=== PATIENT | female | born 1955 | race Caucasian/White ===

== ENCOUNTER 2017-12-04 20:02 | Emergency (ER) | payer OTHER, SELFPAY ==
[2017-12-04 20:09] VITALS: BP 116/67; PULSE 92; RESP 18; TEMP 36.8; O2SAT 98; BMI 22.4
[2017-12-04 20:50] LABS: Absolute Lymphocyte Count 1.79 X10^3/ul (0.83-4.51); Absolute Neutrophil Count 4.2 X10^3/uL (2.0-7.7); Basophil# 0.02 X10^3/uL; Basophil% 0.3 % (0-1); Eosinophil# 0.04 X10^3/uL; Eosinophils% 0.6 % (0-5); Hematocrit 43.6 % (37-47); Hemoglobin 14.6 g/dl (12.0-15.0); Lymphocyte # 1.79 X10^3/ul (4.0); Lymphocyte % 27.9 % (19-41); Mean Corp Hgb Conc 33.5 g/gl (32-36); Mean Corpuscular Volume 95.6 fL (81-99); Mean Platelet Vol. 10.1 fl (6.2-12.0); Monocyte# 0.33 X10^3/uL; Monocyte% 5.1 % (0-10); Neutrophil # 4.24 X10^3/uL (2.7-7.7); Neutrophil % 66.1 % (47-70); Platelet Count 177 K/mm3 (150-450); RBC Distribution Width CV 12.9 % (11.6-14.6); RBC Distribution Width SD 44.8 fl (35.1-43.9); Red Blood Count 4.56 M/mm3 (4.2-5.4); White Blood Count 6.4 K/mm3 (4.4-11.0)
[2017-12-04 20:54] LABS: POSITIVE COUNT NO; POSITIVE DIFFERENTIAL NO; POSITIVE MORPHOLOGY NO
[2017-12-04 21:00] LABS: Amphetamine Urine VISTA POSITIVE (<1000 ng/mL); Barbiturate Urine VISTA NEGATIVE (< 200 ng/mL); Benzodiazepine Urine VISTA NEGATIVE (< 200 ng/mL); Cocaine Urine VISTA NEGATIVE (< 300 ng/mL); Ecstacy Urine VISTA POSITIVE (< 500 ng/mL); Methadone Urine VISTA NEGATIVE (< 300 ng/mL); PCP Urine VISTA NEGATIVE (< 25 ng/mL); THC Urine VISTA NEGATIVE (< 50 ng/mL); Vista UDS pH Range 5
[2017-12-04 21:01] LABS: Anion Gap 6 (5-15); BUN 10 mg/dL (7-18); BUN/Creat Ratio 11.5 RATIO (10-20); Calcium,Total 8.6 mg/dL (8.5-10.1); Chloride 108 mmol/L (98-107); Creatinine, Serum 0.87 mg/dL (0.55-1.02); EST Glomerular Filtration Rate 70 mL/min (>60); Est Glom Filt Rate - Afr Amer 84 mL/min (>60); Estimated Creatinine Clearance 58.78 ml/min; Glucose 60 mg/dL (74-106); Potassium 3.5 mmol/L (3.5-5.1); Sodium Level 142 mmol/L (136-145)
--- NOTE | 2017-12-04 21:12 | ED.RN ---
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
[2017-12-04 21:40] VITALS: BP 113/69; PULSE 70; RESP 16; O2SAT 96
--- NOTE | 2017-12-04 22:10 | ED.VISSUMM ---
- ER Visit Summary Date of Service: 12/04/17 Chief Complaint: Medication overdose, suicide attempt History of Present Illness: The patient is a 62 F who attempted to kill herself tonight. She took Ambien. She is unsure how many. She took them to kill herself. She has been dealing with a lot of family stress. She has a family member, a child, with her family who lives in the same house with her. Another child is homeless. The other child has a messy house. She has had suicide attempt in the past, greater than 40 years ago. She sees a psychiatrist as an outpatient. They have been adjusting her thyroid medication recently Physical Examination: Vital signs reviewed. HEENT exam unremarkable. Heart is regular rate and rhythm without murmurs. Lungs are clear to auscultation. Abdomen is soft and nontender. Extremities reveal no edema. Skin exam normal. Neurologic exam normal. Patient has poor affect with a flat affect. She voices suicidal thoughts. Test Results: Laboratory studies unremarkable except for methamphetamines in the urine and alcohol level of 0.053 Emergency Department Course and Treatment: Patient will be evaluated by crisis. Due to the severity of her attempt she will likely need to be transferred to a psychiatric facility Treatment Plan: [] Disposition: Likely transfer to psychiatric facility Impression: Medication overdose, suicide attempt, suicidal ideation This note was generated with [employer] dictation software. It may contain incorrect words, spelling, and punctuation that were not noted in review of the chart prior to signing ED Disposition - Plan for ED Patient: Chief Complaint: Overdose Referrals: [facility] Doctor,Out of [Primary Care Provider] -
[2017-12-04 23:12] VITALS: BP 111/60; PULSE 78; RESP 14; O2SAT 97
[2017-12-05] VITALS (21 sets, daily range): BP systolic 88–121; BP diastolic 45–73; PULSE 52–87; RESP 12–20; O2SAT 95–100
[2017-12-05 01:21] LABS: Bedside Glucose 77 mg/dL (70-110)
--- NOTE | 2017-12-05 11:38 | ED.RN ---
EDU FROM CRISIS CALLED; HE SPOKE WITH [facility] AND THE CHARGE NURSE HAS THE PAPER WORK; HE IS NOT GOING TO GIVE THEM VERY LONG BEFORE HE CALLS THEM BACK
--- NOTE | 2017-12-05 11:41 | ED.RN ---
left and pt's home meds given to him to take home per request.
--- NOTE | 2017-12-05 13:57 | ED.RN ---
ATTEMPTED TO REACH EDU APPROXIMATELY AN HOUR AGO; NO RESULTS; CALLED THE [facility]SELING [facility]ENTER TO RE PAGE HIM
--- NOTE | 2017-12-05 15:00 | ED.RN ---
PER EDU WITH CRISIS; [facility] IS WAITING ON INSURANCE APPROVAL; THEY WILL NOT BE IN UNTIL WEDNESDAY; EDU ALSO CALLED [facility] AND [facility] ARE F[facility]; PER EDU BECAUSE THIS IS HER FIRST HOSPITALIZATION FOR THIS ISSUE HE WOULD PREFER TO NOT SEND THE PT TO A [facility]
--- NOTE | 2017-12-05 15:05 | ED.RN ---
CALL RECEIVED FROM EDU Soto (CRISIS) STATING THAT [facility] WOULD NOT BE TAKING PT THIS EVENING, BUT WOULD RE-EVALUATE IN THE AM. PT NOTIFIED. OK RECEIVED FROM MD LINDSEY TO REMOVE SL AND REMOVE BILL SORTER. SITTER REMAINS AT BS.
[2017-12-06 01:10] VITALS: RESP 12
[2017-12-06 02:00] VITALS: RESP 10
[2017-12-06 03:00] VITALS: RESP 12
[2017-12-06 04:00] VITALS: RESP 10
--- NOTE | 2017-12-06 09:55 | ED.RN ---
RAISA EARLY WITH CR[facility] ACCEPTED PATIENT WILL CALL WITH A BED ASSIGNMENT
--- NOTE | 2017-12-06 11:23 | ED.RN ---
PATIENT SCHEDULED TO BE PICKED UP AT [address] [facility]
[2017-12-06 11:48] VITALS: BP 98/56; PULSE 71; O2SAT 98
[2017-12-06] MEDS: Levothyroxine 100 MCG Tablet PO (12:45)
[2017-12-06] MEDS: buPROPion (XL) 150 MG TABLET.XL PO (12:45)
== END 2017-12-06 14:30 ==
PROVIDERS: Emergency Provider Emergency Medicine
DX: T42.6X2A Poisoning by other antiepileptic and sedative-hypnotic drugs, intentional self-harm, initial encounter (principal); Y92.9 Unspecified place or not applicable; R45.851 Suicidal ideations; E05.00 Thyrotoxicosis with diffuse goiter without thyrotoxic crisis or storm; Z79.82 Long term (current) use of aspirin; Z79.899 Other long term (current) drug therapy
CPT/HCPCS: 80048; 80307; 80320; 82962; 84443; 85025; 99283; A4216; G0480

== ENCOUNTER 2022-06-17 08:53 | Day surgery (SDC) | payer MEDICARE, OTHER, SELFPAY ==
--- NOTE | 2022-06-11 09:37 | EKG12_ITS ---
Test Reason : PREOP Blood Pressure : / mmHG Vent. Rate : 066 BPM Atrial Rate : 066 BPM P-R Int : 128 ms QRS Dur : 070 ms QT Int : 412 ms P-R-T Axes : 080 069 051 degrees QTc Int : 431 ms Normal sinus rhythm Normal ECG Confirmed by PERRY KANG, JAE ([id number]), mapping editor KEO MONTERROSO ([id number]) on 06/12/2022 8:16:02 AM Referred By: Jeb Coelho Confirmed By:JAE AMADOR MD
[2022-06-11 10:58] LABS: Thyroid Stim Hormone (TSH) 1.29 uIU/mL (0.358-3.74)
[2022-06-17 09:30] VITALS: BP 108/47; PULSE 67; RESP 17; TEMP 36.8; O2SAT 96; BMI 24.9
[2022-06-17] MEDS: Lactated Ringers 1,000 ML 15 ML IV (09:30)
--- NOTE | 2022-06-17 10:56 | HP.PCM_ITS ---
[facility] - General General Date of Service: 06/17/22 Chief Complaint: Recurrent stress incontinence [facility] Narrative SARAH MCCLAIN, is a 66 F who presents for placement of a tension-free vaginal sling she has a history of stress incontinence had a sling 20 years ago and she has recurrent stress incontinence documented by exam and also by urodynamics were in place a tension-free vaginal sling today patient understands is always a risk of having the sling being too tight requiring more surgery the certain sling can get infected may be may be required to be removed in the future also possible the sling may not alleviate her urinary symptoms and bladder control problems to her satisfaction. After all this was reviewed with the patient she signed the consent form again to proceed with a tension-free vaginal sling [facility] Medical History Alcohol use Anxiety Cancer Depression Former smoker Gastric reflux Heartburn Hx of thyroid irradiation (~1989) Loss of hearing Low iron Post-menopausal Thyroid disease Wears glasses Home Medications Ibandronate Sodium [Boniva] 150 mg PO Q30D 12/05/17 [History Last Taken 06/16/22] calcium carbonate 600 mg-vitamin D3 20 mcg (800 unit) tablet (Caltrate with Vitamin D3) 1 ea PO DAILY 12/05/17 [History Last Taken 06/16/22] levothyroxine 100 mcg tablet 100 mcg PO DAILY 12/05/17 [History Last Taken 06/17/22] multivitamin (Multiple Vitamins tablet) 1 ea PO DAILY 12/05/17 [History Last Taken 06/16/22] mirabegron 50 mg tablet,extended release 24 hr (Myrbetriq) 50 mg PO DAILY 06/10/22 [History Last Taken 06/16/22] Allergy/AdvReac Type Severity Reaction Status Date / Time povidone-iodine Allergy Rash Verified 06/17/22 09:29 [From Betadine] soap [From Betadine] Allergy Rash Verified 06/17/22 09:29 Surgical History History of breast surgery History of cardiac catheterization (~2002) History of foot surgery History of lumpectomy of left breast History of mastectomy Social History Smoking Status: Former smoker Vital Signs Vital Signs Vital Signs: 06/17/22 09:30 06/17/22 09:30 Temperature 98.2 F Temperature Source Temporal Pulse Rate 67 Respiratory Rate 17 Respiratory Pattern Normal Blood Pressure 108/47 L Blood Pressure Mean 67 Blood Pressure Source Monitor Blood Pressure Position Semi-Fowlers Blood Pressure Location Right Arm Pulse Ox 96 Oxygen Delivery Method Room Air Weight Weight: 68 kg Body Mass Index (BMI) 24.9
[2022-06-17] MEDS: Cefazolin 2 GM in 0.9% Normal Saline 100 ML IV (11:04)
--- NOTE | 2022-06-17 11:07 | DCINST_ITS ---
Discharge Instructions Diet Discharge Diet: No restrictions, Light diet - advance as tolerated and Soft diet Activity Discharge Activity: Return to Normal Activity May resume sexual activity in: 6 weeks Lifting Restrictions: no lifting for 2 weeks Follow Up Care Please Follow Up With: Jeb Coelho MD When: 2 weeks. Test Results: Test results from this visit will be discussed in further detail at your follow- up appointment, if applicable. Discharge Plan Admission Primary Reason for Your Visit: TVT sling Attending Provider: Jeb Coelho Primary Care Provider: Vikki Crowley Discharge Orders/Prescriptions Prescriptions: New cephalexin 500 mg capsule 500 mg PO TID Qty: 20 0RF ibuprofen 600 mg tablet 600 mg PO Q6H PRN (Reason: fever or pain) Qty: 20 0RF Continued multivitamin [Multiple Vitamins] 1 EACH tablet 1 ea PO DAILY levothyroxine 100 MCG tablet 100 mcg PO DAILY calcium carbonate-vitamin D3 [Caltrate with Vitamin D3] 1 EACH tablet 1 ea PO DAILY Ibandronate Sodium [Boniva] 150 MG tablet 150 mg PO Q30D Myrbetriq 50 mg Tablet Extended Release 24 Hr 50 mg PO DAILY Other Ambulatory Orders: 12 Lead EKG (Routine) Timeframe: [id number] Location: None Selected Ordered By: Dr. Patrice Feliciano Referrals / Follow Up: Jeb Coelho MD [Med Staff - Active Staff] - Vikki Crowley DO [Primary Care Provider] - Disposition Disposition (needs filled in before D/C Order can be placed): Home, Self Care
[2022-06-17] MEDS: Lidocaine 1% /Epi 1:100 (50ml) 50 ML VIAL (11:29)
--- NOTE | 2022-06-17 12:01 | OP.PCM_ITS ---
Report of Operation Date of Procedure: 06/17/22 Pre-Operative Diagnosis: Recurrent stress incontinence Post-Operative Diagnosis: Same Surgery/Procedure Performed:: TVT sling Description of Surgical Findings:: Patient presents today for placement of a tension-free vaginal sling, she has a diagnosis of incontinence and has been evaluated in the preoperative setting. We discussed how the procedure will be done what to expect afterwards. She understands is possible she may need a catheter in the short-term. We discussed the risk of bleeding and also the possibility of infection with the placement of the sling. We discussed the fact that we can be using artificial mesh and that there is a small risk of infection, erosion into the urethra, vaginal area, bladder and a small risk that she may require surgery down the road to address a ny problems or erosions with the mesh in the long-term. She was also given no guarantees as to how well the sling would work and that her incontinence may not improved to her satisfaction. After reviewing this with the patient she agreed to proceed with the placement of the sling. Patient was taken back to the operating room, after smooth induction of general anesthesia she was placed in dorsolithotomy position. She underwent vaginal prep and was placed in dorsolithotomy position. A Slaughter catheter was placed into the bladder and Inflated with 10 cc of sterile water into the balloon. I then marked out the bladder neck with a marking pen and marked out the mid urethra. The urethra was then infiltrated with lidocaine with 1:1000 epinephrine, after the injecting into the urethra then a midline incision was made in the urethra long enough to create a space for the trocar. I then used curved Metzenbaum scissors to dissect periurethrally up to the right side underneath the pubic bone, and then dissect periurethrally up to the left side underneath the pubic bone creating the tunnel for the sling. I then went up to the pubic bone and the patient was in Trendelenburg position and marked two incision site 2 cm from the midline on the left and right side. I then infiltrated the skin with lidocaine and then made a small stab incision in the right and left side exactly where the stewart were above the pubic bone. Making sure that the bladder was completely empty I then guided the suprpubid desera trocar top-down on the right side first coming behind the pubic bone following it into the incision below the urethra. Once the suprapubic trocar was passed then I deflated the balloon and remove the Slaughter catheter went into the bladder with a 70 degree lens and inspected the bladder and there was no perforation damage or injury to the bladder, no damage to the ureter, and no damage to the urethra. I then hooked the end of the desara sling to the suprapubic trocar and advanced it up through the tunnel and then put a snap on the end of the sling. I then went to the other side to pass the sling. The 18fr Slaughter catheter was replaced into the bladder with 10 cc of water into the balloon and then drained the bladder completely and then I guided the suprapubic trocar down on the left side from top down behind the pubic bone into the incision below the urethra. I then deflated the balloon removed the Slaughter catheter and performed a cystoscopy again and inspected the bladder with a 70 degree there was no injury to the bladder, the ureter, or the urethra on inspection. I then grabbed the other end of the sling and using the suprapubic trocar pulled the sling on the other side and put a snap on the sling end. I then put a snap in the middle the sling and then both ends of the slings were then pulled up and then the sling was tensioned below the urethra ensuring that the sling was flat that there was no kinking or pulling or twisting and laid nicely tension-free underneath the urethra. Then both ends of the slings were cut and then the plastic sheath covering the mesh was removed deploying the sling, the excess mesh was then trimmed from the suprapubic area and the mesh ends were dunked down deep in the subcutaneous fat. The Slaughter catheter was removed and we checked the bladder with a 30 and 70 degree lens making sure there is no injury to the urethra, bl adder and no perforation with a mesh. The urine was nice and clear with no blood. I then closed the incision below the urethra with a running 3-0 Vicryl and thenclosed the 2 suprapubic incisions with interrupted 4-0 Monocryl. The bladder was left empty anesthetic was reversed and she was taken back to the PACU and will undergo a voiding trial before discharge. Surgeon: Jeb Coelho Type of Anesthesia: General Drains: none Estimated Blood Loss (mL): 25 Admit VTE Documentation VTE Present on Admission: No VTE Mechan Device Prophylaxis: SCD's VTE Pharm Prophylaxis ordered?: No
[2022-06-17 12:17] VITALS: BP 108/47; BP 117/92; PULSE 91; RESP 18; TEMP 36.4; O2SAT 100
[2022-06-17 12:30] VITALS: BP 108/47; BP 109/52; PULSE 80; RESP 18; O2SAT 96
[2022-06-17 12:45] VITALS: BP 108/47; BP 118/63; PULSE 85; RESP 18; TEMP 36.2; O2SAT 96
[2022-06-17] MEDS: oxyCODONE 5 MG Tablet PO (13:11)
[2022-06-17 14:06] VITALS: BP 108/47; BP 116/59; PULSE 60; RESP 18; TEMP 36.2; O2SAT 98
== END 2022-06-17 14:43 | disposition home or self-care (01) ==
LOC: SDC 08:53 → AC 08:53
PROVIDERS: Anesthesiology; PCP Family Medicine; Referring Provider Urology; Visit Provider Urology
PROC: 0TJB8ZZ Inspection of Bladder, Via Natural or Artificial Opening Endoscopic (ICD-10-PCS; CPT 57288; principal; 2022-06-17 10:50)
DX: N39.3 Stress incontinence (female) (male) (principal); E07.9 Disorder of thyroid, unspecified; K21.9 Gastro-esophageal reflux disease without esophagitis; F32.A Depression, unspecified; F41.9 Anxiety disorder, unspecified; Z79.83 Long term (current) use of bisphosphonates; Z79.890 Hormone replacement therapy; Z79.899 Other long term (current) drug therapy; Z87.891 Personal history of nicotine dependence
CPT/HCPCS: 57288; 36415; 84443; 93005; J7120; C1771; J2405